=== PATIENT | female | born 1965 | race Caucasian/White ===

== ENCOUNTER 2017-02-17 21:50 | Emergency (ER) | payer MEDICAID ==
[~2017-02-17] VITALS: Ht 177.8 cm; Wt 57.6 kg
[~2017-02-17 21:50] MED LIST: DIVA125T2 PO; ONDA4TAB7 PO; OXYC-223 PO; QUET100T4 PO
[2017-02-17] MEDS ORDERED: ONDANSETRON 2MG/ML, 2ML IVPush ONE (22:00)
[2017-02-17] MEDS ORDERED: SODIUM CHLORIDE FLUSH 10ML SYR IVF ONE (22:00)
[2017-02-17] MEDS ORDERED: HYDROmorphone 1 MG/ML, 1ML ONE ×2 (22:00→22:37)
[2017-02-17] MEDS ORDERED: ONDANSETRON 2MG/ML, 2ML ONE (22:00)
[2017-02-17] MEDS: HYDROmorphone 1 MG/ML, 1ML IVPush PRN ×2 (22:30→22:41)
[2017-02-18 00:31] VITALS: BP 137/87
== END 2017-02-18 00:33 | disposition home or self-care (01) ==
LOC: ED 22:55
DX: S52.022A Displaced fracture of olecranon process without intraarticular extension of left ulna, initial encounter for closed fracture (principal); S40.012A Contusion of left shoulder, initial encounter; S20.212A Contusion of left front wall of thorax, initial encounter; J44.9 Chronic obstructive pulmonary disease, unspecified; W18.30XA Fall on same level, unspecified, initial encounter; Y93.02 Activity, running; Y92.89 Other specified places as the place of occurrence of the external cause; Y99.8 Other external cause status
CPT/HCPCS: 71020; 73030; 73080; 96374; 96375; 99284; J1170; J2405

== ENCOUNTER → 2017-02-28 | Outpatient (CLI) | payer MEDICAID ==
[2017-02-28 12:52] LABS: DAU SCREEN DISCLAIMER
[2017-02-28 13:01] LABS: PATH.CAST-FLAG NOT PRESENT; SPERM-FLAG NOT PRESENT; SRC-FLAG NOT PRESENT; XTAL-FLAG NOT PRESENT; YLC-FLAG NOT PRESENT
== END | disposition home or self-care (01) ==
LOC: STAR 06:22 → EDSTATUS 03-03 10:00
PROVIDERS: ATTEND Orthopaedic Surgery
DX: S52.022B Displaced fracture of olecranon process without intraarticular extension of left ulna, initial encounter for open fracture type I or II (principal); X58.XXXA Exposure to other specified factors, initial encounter; Y93.89 Activity, other specified; Y92.89 Other specified places as the place of occurrence of the external cause; Y99.8 Other external cause status
CPT/HCPCS: 80307; 81001; 87086

== ENCOUNTER 2017-03-02 16:27 | Emergency (ER) | payer MEDICAID ==
[~2017-03-02] VITALS: Ht 177.8 cm; Wt 57.7 kg
[2017-03-02 16:31] VITALS: BP 107/72
[2017-03-02] MEDS ORDERED: HYDROmorphone 1 MG/ML, 1ML IM PRN (17:30)
== END 2017-03-02 17:34 | disposition home or self-care (01) ==
LOC: ED 17:07
DX: Z76.0 Encounter for issue of repeat prescription (principal); S42.401A Unspecified fracture of lower end of right humerus, initial encounter for closed fracture; J44.9 Chronic obstructive pulmonary disease, unspecified; Z90.710 Acquired absence of both cervix and uterus; Z98.51 Tubal ligation status; Z90.721 Acquired absence of ovaries, unilateral; V87.8XXA Person injured in other specified noncollision transport accidents involving motor vehicle (traffic), initial encounter; Y93.89 Activity, other specified; Y92.89 Other specified places as the place of occurrence of the external cause; Y99.9 Unspecified external cause status
CPT/HCPCS: 96372; 99283; J1170

== ENCOUNTER 2017-03-13 12:25 | Emergency (ER) | payer MEDICAID ==
[~2017-03-13] VITALS: Ht 177.8 cm; Wt 57.5 kg
[2017-03-13 12:29] VITALS: BP 126/87
[2017-03-13] MEDS ORDERED: HYDROmorphone 1 MG/ML, 1ML IM ONE (14:00)
[2017-03-13] MEDS ORDERED: HYDROcodone/APAP 10/325 MG TABLET PO STA (14:21)
[2017-03-13] MEDS ORDERED: HYDROcodone/APAP 10/325 MG TABLET ONE (14:25)
== END 2017-03-13 16:01 | disposition home or self-care (01) ==
LOC: ED 14:26
DX: S52.022A Displaced fracture of olecranon process without intraarticular extension of left ulna, initial encounter for closed fracture (principal); W19.XXXA Unspecified fall, initial encounter; Y93.89 Activity, other specified; Y99.8 Other external cause status; Y92.009 Unspecified place in unspecified non-institutional (private) residence as the place of occurrence of the external cause
CPT/HCPCS: 29105

== ENCOUNTER 2017-03-31 14:33 | Day surgery (SDC) | payer MEDICAID ==
[~2017-03-31] VITALS: Ht 177.8 cm; Wt 55.0 kg
[2017-03-31 16:00] VITALS: BP 113/77
[2017-03-31] MEDS ORDERED: MIDAZOLAM 1 MG/ML, 2ML ONE (16:09)
[2017-03-31] MEDS ORDERED: FENTANYL PF 250 MCG/5ML ONE (16:09)
[2017-03-31 16:25] LABS: DAU SCREEN DISCLAIMER
[2017-03-31] MEDS ORDERED: BUPIVACAINE/PF 0.5% ONE ×2 (16:33→17:02)
[2017-03-31] MEDS ORDERED: LACTATED RINGERS 1,000 ML IV SCH (16:40)
[2017-03-31] MEDS ORDERED: FENTANYL PF 100 MCG/2ML ONE (17:06)
[2017-03-31] MEDS ORDERED: PROPOFOL 10 MG/ML, 20ML ONE (17:07)
[2017-03-31] MEDS ORDERED: CEFAZOLIN 1,000 MG ONE (17:07)
[2017-03-31] MEDS ORDERED: DEXAMETHASONE 4 MG/ML, 1ML ONE (17:07)
[2017-03-31] MEDS ORDERED: FENTANYL PF 100 MCG/2ML IV PRN (18:00)
[2017-03-31] MEDS ORDERED: ONDANSETRON 2MG/ML, 2ML IVPush PRN (18:00)
[2017-03-31] MEDS ORDERED: hydrALAzine 20 MG/ML, 1ML IV PRN (18:00)
[2017-03-31] MEDS ORDERED: ACETAMINOPHEN 325 MG TABLET PO PRN (18:00)
[2017-03-31] MEDS ORDERED: HYDROmorphone 1 MG/ML, 1ML IV PRN (18:00)
[2017-03-31] MEDS ORDERED: LABETALOL 5MG/ML, 20ML IV PRN (18:00)
[2017-03-31] MEDS ORDERED: MIDAZOLAM 1 MG/ML, 2ML IV PRN (18:00)
[2017-03-31] MEDS ORDERED: OXYcodone 5 MG/5 ML ORAL.SOL UDC PO PRN (18:00)
[2017-03-31] MEDS ORDERED: MEPERIDINE/PF 25MG/0.5ML IVPush PRN (18:00)
[2017-03-31] MEDS ORDERED: PROMETHAZINE 25 MG/ML, 1ML IV PRN (18:00)
[2017-03-31] MEDS ORDERED: ALBUTEROL/IPRATROPIUM 2.5MG/0.5MG, 3 ML NPPB PRN (18:00)
[2017-03-31] MEDS ORDERED: OXYcodone 5 MG/5 ML ORAL.SOL UDC ONE (18:31)
[2017-03-31 20:19] LABS: HCG UR OBC PASS
== END 2017-03-31 19:50 ==
LOC: OR 14:33 → OUT 19:50
PROVIDERS: ATTEND Orthopaedic Surgery
DX: S52.022A Displaced fracture of olecranon process without intraarticular extension of left ulna, initial encounter for closed fracture (principal); X58.XXXA Exposure to other specified factors, initial encounter; Y93.9 Activity, unspecified; Y92.9 Unspecified place or not applicable; Y99.9 Unspecified external cause status
CPT/HCPCS: 24685; 73070; 76001; 80307; 81025; C1713; J0690; J1100; J2250; J2704; J3010; J3490; J7120

== ENCOUNTER 2017-04-01 22:01 | Observation (INO) | payer MEDICAID ==
[~2017-04-01] VITALS: Ht 175.3 cm; Wt 60.2 kg
[2017-04-01] MEDS ORDERED: NALOXONE 0.4 MG/ML, 1ML ONE (22:18)
[2017-04-01 22:49] LABS: BLOOD UREA NITROGEN 17 mg/dL (7-18)
[2017-04-01 22:54] LABS: ASPARTATE AMINO TRANSFERASE 28 U/L (15-37)
[2017-04-01 22:56] LABS: ACETAMINOPHEN < 2 mcg/mL (10-30)
[2017-04-02] MEDS ORDERED: KETOROLAC 30 MG/1 ML ONE (01:25)
[2017-04-02] MEDS ORDERED: PROMETHAZINE 25 MG/ML, 1ML ONE (01:25)
[2017-04-02] MEDS ORDERED: PROMETHAZINE 25 MG/ML, 1ML IM ONE (01:30)
[2017-04-02] MEDS ORDERED: KETOROLAC 30 MG/1 ML IVPush ONE (01:30)
[2017-04-02 01:59] LABS: DAU SCREEN DISCLAIMER
[2017-04-02] MEDS ORDERED: LORazepam 1MG TABLET PO ONE (02:00)
[2017-04-02] MEDS ORDERED: LORazepam 1MG TABLET ONE (04:31)
[2017-04-02] MEDS ORDERED: QUETIAPINE 100MG TABLET PO SCH (09:00)
[2017-04-02] MEDS ORDERED: DIVALPROEX 250 MG TAB.ER.24H PO SCH (09:00)
[2017-04-02 11:36] LABS: HCG UR OBC PASS
[2017-04-02] MEDS ORDERED: ONDANSETRON ODT 4 MG PO PRN (14:30)
[2017-04-02] MEDS ORDERED: DIVA250T PO (15:03)
[2017-04-02 15:34] VITALS: BP 156/94
[2017-04-02] MEDS: NICOTINE 21 MG/24 HR PATCH.TD24 TD SCH (15:48)
[2017-04-02] MEDS: OXYcodone IR 5MG TABLET PO PRN ×2 (15:49→21:15)
[2017-04-02 19:58] VITALS: BP 119/75
[2017-04-02] MEDS: DIVALPROEX 125 MG TABLET.DR PO SCH (21:15)
[2017-04-02] MEDS: QUETIAPINE 100MG TABLET PO SCH (21:15)
[2017-04-03] MEDS: OXYcodone IR 5MG TABLET PO PRN ×6 (00:58→23:08)
[2017-04-03 04:44] LABS: BLOOD UREA NITROGEN 16 mg/dL (7-18)
[2017-04-03 04:47] LABS: ASPARTATE AMINO TRANSFERASE 25 U/L (15-37)
[2017-04-03 08:00] VITALS: BP 119/81
[2017-04-03] MEDS: DIVALPROEX 125 MG TABLET.DR PO SCH ×2 (11:54→21:04)
[2017-04-03] MEDS: NICOTINE 21 MG/24 HR PATCH.TD24 TD SCH (14:55)
[2017-04-03 19:00] VITALS: BP 114/71
[2017-04-03] MEDS: QUETIAPINE 100MG TABLET PO SCH (21:05)
[2017-04-04 03:05] VITALS: BP 121/83
[2017-04-04] MEDS: OXYcodone IR 5MG TABLET PO PRN ×6 (03:13→23:28)
[2017-04-04 07:16] VITALS: BP 115/81
[2017-04-04] MEDS: DIVALPROEX 125 MG TABLET.DR PO SCH ×2 (09:28→20:54)
[2017-04-04] MEDS ORDERED: IBUPROFEN 200 MG TABLET PO PRN (13:00)
[2017-04-04] MEDS: NICOTINE 21 MG/24 HR PATCH.TD24 TD SCH (16:37)
[2017-04-04 19:15] VITALS: BP 152/94
[2017-04-04] MEDS: QUETIAPINE 100MG TABLET PO SCH (20:54)
[2017-04-05 03:25] VITALS: BP 120/74
[2017-04-05] MEDS: OXYcodone IR 5MG TABLET PO PRN ×5 (03:31→20:40)
[2017-04-05 07:15] VITALS: BP 116/71
[2017-04-05] MEDS: DIVALPROEX 125 MG TABLET.DR PO SCH ×2 (08:22→20:15)
[2017-04-05] MEDS: ALPRazolam 1MG TABLET PO PRN ×2 (10:03→18:17)
[2017-04-05] MEDS: NICOTINE 21 MG/24 HR PATCH.TD24 TD SCH (14:07)
[2017-04-05 19:19] VITALS: BP 112/76
[2017-04-05] MEDS: QUETIAPINE 100MG TABLET PO SCH (20:16)
[2017-04-06] MEDS: OXYcodone IR 5MG TABLET PO PRN ×7 (03:43→22:16)
[2017-04-06] MEDS: ALPRazolam 1MG TABLET PO PRN ×3 (05:24→21:22)
[2017-04-06] MEDS: DIVALPROEX 125 MG TABLET.DR PO SCH ×2 (08:46→20:06)
[2017-04-06 08:55] VITALS: BP 106/69
[2017-04-06] MEDS: NICOTINE 21 MG/24 HR PATCH.TD24 TD SCH (14:42)
[2017-04-06 19:01] VITALS: BP 95/60
[2017-04-06] MEDS: QUETIAPINE 100MG TABLET PO SCH (20:06)
[2017-04-06] MEDS: IBUPROFEN 200 MG TABLET PO PRN (20:06)
[2017-04-07] MEDS: OXYcodone IR 5MG TABLET PO PRN ×5 (04:13→21:30)
[2017-04-07] MEDS: ALPRazolam 1MG TABLET PO PRN ×2 (06:12→12:25)
[2017-04-07 07:22] VITALS: BP_SYST 163; BP_DIAS 103; BP_DIAS 96
[2017-04-07 07:52] VITALS: BP 100/67
[2017-04-07] MEDS: DIVALPROEX 125 MG TABLET.DR PO SCH ×2 (08:59→20:01)
[2017-04-07] MEDS: IBUPROFEN 200 MG TABLET PO PRN ×3 (12:25→23:54)
[2017-04-07] MEDS: NICOTINE 21 MG/24 HR PATCH.TD24 TD SCH (14:41)
[2017-04-07 17:15] VITALS: BP 112/74
[2017-04-07 19:20] VITALS: BP 133/77
[2017-04-07] MEDS: QUETIAPINE 100MG TABLET PO SCH (20:01)
[2017-04-07 21:23] VITALS: BP 97/61
[2017-04-08] MEDS: OXYcodone IR 5MG TABLET PO PRN ×4 (03:17→19:51)
[2017-04-08] MEDS: IBUPROFEN 200 MG TABLET PO PRN (06:36)
[2017-04-08 06:39] VITALS: BP 98/61
[2017-04-08] MEDS: DIVALPROEX 125 MG TABLET.DR PO SCH (08:31)
[2017-04-08 08:55] VITALS: BP 107/69
[2017-04-08] MEDS: ALPRazolam 1MG TABLET PO PRN (09:57)
[2017-04-08] MEDS: NICOTINE 21 MG/24 HR PATCH.TD24 TD SCH (14:12)
[2017-04-08] MEDS: LURASIDONE 20 MG TABLET PO SCH (17:56)
[2017-04-08 19:43] VITALS: BP 119/77
[2017-04-08] MEDS: DIVALPROEX 250 MG TABLET.DR PO SCH (21:17)
[2017-04-09] MEDS: OXYcodone IR 5MG TABLET PO PRN ×5 (00:14→16:03)
[2017-04-09 07:41] VITALS: BP 111/75
[2017-04-09] MEDS: DIVALPROEX 250 MG TABLET.DR PO SCH (08:05)
[2017-04-09] MEDS: LURASIDONE 20 MG TABLET PO SCH ×2 (09:35→16:05)
[2017-04-09] MEDS: IBUPROFEN 200 MG TABLET PO PRN (09:35)
[2017-04-09] MEDS: NICOTINE 21 MG/24 HR PATCH.TD24 TD SCH (14:05)
[2017-04-09] MEDS ORDERED: QUETIAPINE 100MG TABLET PO SCH (21:00)
== END 2017-04-09 16:25 | disposition home or self-care (01) ==
LOC: ED 23:59 → EDIP 04-02 13:39 → 3E 04-02 15:02
PROVIDERS: ADMIT Family Medicine
DX: R45.851 Suicidal ideations (principal); D63.8 Anemia in other chronic diseases classified elsewhere; F31.81 Bipolar II disorder; F19.10 Other psychoactive substance abuse, uncomplicated; J44.9 Chronic obstructive pulmonary disease, unspecified; B18.2 Chronic viral hepatitis C; F10.120 Alcohol abuse with intoxication, uncomplicated; F15.20 Other stimulant dependence, uncomplicated; F11.10 Opioid abuse, uncomplicated; F17.200 Nicotine dependence, unspecified, uncomplicated; Z91.5 Personal history of self-harm
CPT/HCPCS: 36415; 73070; 80053; 80164; 80307; 80329; 81025; 83690; 85025; 85610; 96372; 96374; 99285; G0378; J1885; J2550; G0480

== ENCOUNTER 2017-07-21 11:12 | Emergency (ER) | payer MEDICAID ==
[~2017-07-21] VITALS: Ht 177.8 cm; Wt 60.1 kg
[~2017-07-21 11:12] MED LIST changes: +DIVA250T PO; -OXYC-223 PO; +OXYC-306 PO
[2017-07-21 11:29] VITALS: BP 111/72
[2017-07-21] MEDS ORDERED: AMIT50TA PO (12:23)
== END 2017-07-21 12:58 | disposition home or self-care (01) ==
LOC: ED 12:52
DX: J20.9 Acute bronchitis, unspecified (principal); M25.522 Pain in left elbow; F31.9 Bipolar disorder, unspecified; J44.9 Chronic obstructive pulmonary disease, unspecified; Z90.710 Acquired absence of both cervix and uterus; Z98.51 Tubal ligation status; Z98.890 Other specified postprocedural states
CPT/HCPCS: 71020; 87081; 87880; 99285

== ENCOUNTER 2017-08-12 17:03 | Emergency (ER) | payer MEDICAID ==
[~2017-08-12] VITALS: Ht 177.8 cm; Wt 62.0 kg
[~2017-08-12 17:03] MED LIST changes: +AMIT50TA PO
[2017-08-12 17:11] VITALS: BP 117/80
[2017-08-29] MEDS ORDERED: QUET25TA5 PO (08:44)
[2017-08-29] MEDS ORDERED: CLON-364 PO (08:44)
[2017-08-29] MEDS ORDERED: BUSP15TA PO (08:44)
[2017-08-29] MEDS ORDERED: TRAM50TA2 PO (08:44)
== END 2017-08-12 18:56 | disposition home or self-care (01) ==
LOC: ED 18:50
DX: M72.2 Plantar fascial fibromatosis (principal); J44.9 Chronic obstructive pulmonary disease, unspecified
CPT/HCPCS: 82962; 99284; 99285

== ENCOUNTER → 2017-08-29 | Outpatient (CLI) | payer MEDICAID ==
[~2017-08-29] VITALS: Ht 177.8 cm; Wt 63.6 kg
[~2017-08-29] MED LIST changes: +BUSP15TA PO; +CLON-364 PO; +QUET25TA5 PO; +TRAM50TA2 PO
== END | disposition home or self-care (01) ==
LOC: STAR 08:00 → EDSTATUS 08-30 14:00
PROVIDERS: ATTEND Orthopaedic Surgery
DX: Z01.818 Encounter for other preprocedural examination (principal); I44.7 Left bundle-branch block, unspecified; M25.522 Pain in left elbow; S52.032A Displaced fracture of olecranon process with intraarticular extension of left ulna, initial encounter for closed fracture; Y93.89 Activity, other specified; Y92.89 Other specified places as the place of occurrence of the external cause; Y99.8 Other external cause status
CPT/HCPCS: 93005